=== PATIENT | female | born 1935 | race Caucasian/White ===

== ENCOUNTER 2025-08-08 15:47 | Outpatient (REF) | payer MEDICARE, OTHER, SELFPAY ==
--- OUTSIDE RECORDS SUMMARY | 2025-04-03 08:30 | XMS_ITS ---
Author Organization [facility] Address [address] [place] [address] Care Team Providers Care Shoe Sticks Repairer Name Role Phone Shi King Primary Care Provider Unavailab Filomena Thomas [phone] REASON FOR VISIT seen sooner Encounters Encounter Location Date Provider Diagnosis [address] [address] 04/03/2025 Filomena Jj Plan Of Treatment Next Appt Details Provider Name:Filomena Jj , 08/30/2025 01:00:00 PM, [address] [facility], [place], [address], Progress Notes * Sarah QUEZADA ADOB:[birth year] (89 yo F)Acc No.[id number]:04/03/2025 Progress Note Patient: Sarah TROTTER Provider: Allison Jj DPM :1935 A ge:89 Y S ex:Female Date:04/03/2025 Address:[address], [address], [place], [place] Pcp:Shi King Subjective: * Chief Complaints: * [...] 04/03/2025 Generated for Meenakshi chakraborty/Warren/Razia on: 1 10/09/2024 08:41 PM EST
[2025-08-08 16:02] LABS: Appearance Urine Clear; Glucose Urine UA Negative (Negative); PH 7.0 (5.0-9.0); Specific Gravity - Urine 1.010 (1.005-1.025)
--- OUTSIDE RECORDS SUMMARY | 2025-08-08 20:41 | XMS_ITS | Patient Health Record ---
[facility] Address [address] [place] [address] Care Team Providers Care Fabrication Operator Name Role Phone Shi King Primary Care Provider Unavailab Filomena Thomas Unavailable [phone] Allergies Allergen (clinical drug ingredient) Drug/Non Drug Allergy documented on EMR Reaction Allergy Type Onset Date Status Percodan tachycardia Drug Allergy Activ e Reason For Referral No Information Medications Medication SIG (Take, Route, Frequency, Duration) Notes Start Date End Date Status Calcium 600 MG 1 tablet with meals Orally Twice a day 05/29/2014 Not-Taking Crotan 10 % APPLY 2-4 GRAMS TO BOTH FEET TWICE DAILY; Duration: 30 Active Amoxicillin 500 MG Oral; Duration: 3 Not-Taking zzzCompression Stockings 20-30mm Hg . . .; Duration: . Not-Takin g Gemtesa 75 MG 1 tablet Orally Once a day Not-Taking prednisoLONE Acetate 1 % Ophthalmic; Duration: 25 Not-Taking oxyBUTYnin Chloride ER 10 MG Oral; Duration: 90 Not-Taking Trospium Chloride Ac tive HYDROcodone-Acetaminophen 5-325 MG Oral; Duration: 3 Not-Taking amLODIPine Besylate 10 MG 1 tablet Orall y Once a day Active Ampicillin 500 MG Oral; Duration: 4 Not-Taking hydroCHLOROthiazide 25 MG 1 tablet in morning Orally Once a day Active Lisinopril-hydroCHLOROthiazi d e 10-12.5 MG Oral; Duration: 90 Not-Takin g Multivital [place] Orally 05/29/2014 Active Neurontin 100 MG Orally BID, And 600mg at bedtime Not-Taking Metoprolol Succinate ER 100 MG Oral; Duration: 90 Active Restasis 0.05 % Ophthalmic; Duration: 90 Not-Taking Immunizations Vaccine Route Administration Date Status Comme nts COVID-19 Pfizer BioNTech Vaccine Unknown 08/23/2020 Administered Second Dose: Social History Tobacco Use: Social History Observation Description Date Details (start date - stop date) Never Smoker NA - NA Tobacco use other than smoking: Question Answer Notes Are you an other tobacco user? No Tobacco Control (Standard) Question Answer Notes Tobacco use: Nonsmoker Additional Findings: Tobacco non-user Current no nsmoker AUDIT-C (Standard) Question Answer Notes Did you have a drink containing alcohol in the p ast year? No Points 0 Interpretation Negative Problems Problem Type SNOMED Code ICD Code Onset Dates Problem Status W/U Status Risk Notes Problem Plantar wart (68577379) Plantar wart (B07.0) Active confirmed Vital Signs Blood pressure diastolic 60 mm Hg 02/27/2025 Height 5 ft 4 in in 02/27/2025 Blood pressure systolic 110 mm Hg 02/27/2025 Weight 142 lbs 02/27/2025 BMI 24.37 kg/m2 02/27/2025 Procedures Procedure Date Ordered Date Performed Result Body Sit e 63201-OHAREAW NAIL, 1-5 10/03/2024 N/A 30251-Zcdc Destruction, 1-14 10/03/2024 N/A 81116-Gjmv Destruction, -14 02/27/2025 N/A 25681-Jnjvcixj Plate 02/27/2025 N/A Encounters Encounter Location Date Provider Diagnosis [address] [address] 10/03/2024 Filomena Black Plantar wart B07.0 ; Onychomycosis B35.1 ; Right foot pain M79.671 and Pain in right toe(s) M79.[address] [facility] [address] 02/27/2025 Filomena Black Ingrown nail L60.0 ; Right foot pain M79.671 and Plantar wart B07.0 [facility] [place] [address] [place] [address] 10/03/2024 Filomena Black [facility] [address] 01/04/2025 [facility] [place] [address] [facility] [address] [place] [address] 02/20/2025 [facility] Encounter Date Diagnosis (ICD Code) Assessment Notes Treatment Notes Treatment Clinical Notes Section Notes 10/03/2024 Plantar wart (ICD-10 - B07.0) 10/03/2024 Onychomycosis (ICD-10 - B35.1) 02/27/2025 Ingrown nail (ICD-10 - L60.0) 02/27/2025 Right foot pain (ICD-10 - M79.671) 10/03/2024 Right foot pain (ICD-10 - M79.671) 10/03/2024 Pain in right toe(s) (ICD-10 - M79.674) 02/27/2025 Plantar wart (ICD-10 - B07.0) Plan Of Treatment Pending Test Test Name Order Date X ray : Foot, right 3V 01/11/2020 73530-GEYETQW NAIL, 6 OR MORE 12/26/2015 75424-ZWZZQRX NAIL, 6 OR MORE 04/17/2016 11110-APKVIFZ NAIL, 1-5 09/26/2015 23670-DNWWBEO NAIL, 1-5 10/03/2024 47539-Ajip Destruction, -14 10/03/2024 56517-Oqhh Destruction, -14 04/04/2024 20273-Zmck Destruction, -14 02/27/2025 71004-Jbou Destruction, -14 07/28/2023 66362-Sllz Destruction, -14 09/26/2015 32501-Gebm Destruction, -14 12/26/2015 14837-Anzg Destruction, -14 04/17/2016 55779-Fyta Destruction, -14 05/01/2016 28516-Hiwr Destruction, -14 12/30/2020 93966-Wzkx Destruction, -14 12/16/2022 37603-Qxvu Destruction, -14 12/01/2016 48783-Kbew Destruction, 1-14 02/14/2018 06425-Pnxi Destruction, -14 10/12/2019 54995-Bmrh Destruction, -14 01/11/2020 40401-Nerl Destruction, 15 OR MORE 08/24 75666-Wkjbkoim Plate 02/27/2025 07433-Utojvlis Plate 07/28/2023 05318-Ufyalczy Plate 04/17/2016 44847- Debride <25 sq cm 05/01/2016 38107- Debride <25 sq cm 12/15/2016 97655- Debride <25 sq cm 08/04/2023 78858- Debride <25 sq cm 08/24/2023 98787-UYGCWYY SKIN/TISSUE 12/08/2016 Next Appt Details Provider Name:Filomena Jj , 08/30/2025 01:00:00 PM, [address] [facility], [place], [address], Insurance Providers Payer Name Payer Address Payer Phone Subscriber Number Group Number Insured Name Patient Relationship to Insured Coverage Start Date Coverage End Date Medicare National Govt [facility] [address] [place] [address] [id number] Sarah Collier Self - patient is the insured [employer] ([employer]) [address] [place] [address] [id number] Sarah Collier Self - patient is the insured Medical (General) History Medical History History ICD Code Cancer High blood pressure Neuropathy Measles Chicken pox Joint implants/screws Transfusions Arthritis M19.90 Neuropathy G62.9 Other hammer toe(s) (acquired), left prasad t M20.42 Other hammer toe(s) (acquired), right fo ot M20.41 Venous insufficiency I87.2 Surgical History Surgery Date(Month/Year) right hip replacement 2007 left hip replacement 2006 left knee replacement 2004 left shoulder replacement 2017 right knee replacement 2021 right shoulder replaced 03/2024
== END 2025-08-08 15:48 | disposition home or self-care (01) ==
LOC: HO.HSH2N 15:47
PROVIDERS: Visit Provider Internal Medicine
DX: N39.0 Urinary tract infection, site not specified (principal)
CPT/HCPCS: 81003; 87086

== ENCOUNTER 2025-08-09 06:21 | Outpatient (REF) | payer SELFPAY ==
[2025-08-09 06:33] LABS: MANUAL DIFF FLAG NO
[2025-08-09 07:12] LABS: Hematocrit 37.2 % (37.0-47.0); Hemoglobin 12.3 g/dl (12.0-16.0); Imm Gran Abs Auto 0.03 X10*3/uL (0.00-0.03); Imm Gran Pct Auto 0.6 % (0.0-0.4); Lymphocytes Absolute Auto 1.4 X10*3/uL (1.2-4.9); Mean Corpuscular HGB Conc 33.1 g/dl (31.0-35.0); Mean Corpuscular Hemoglobin 30.9 pg (27.0-33.0); Mean Corpuscular Volume 93.5 fL (80.0-98.0); NRBC Abs Auto 0.000 X10*3/uL (0.0-0.012); NRBC Pct Auto 0.0 /100WBC (0.0-0.2); Platelet Count 178 X10*3/uL (160-400); Red Blood Count 3.98 X10*6/uL (4.20-5.50); White Blood Count 5.3 X10*3/uL (4.8-10.8)
[2025-08-09 07:17] LABS: Alanine Aminotransferase 16 U/L (0-31); Albumin Level 4.0 g/dL (3.5-5.0); Alkaline Phosphatase 105 U/L (39-117); Anion Gap 11 (12-20); Aspartate Amino Transferase 26 U/L (5-31); Blood Urea Nitrogen 24 mg/dL (9-16); Calcium 8.7 mg/dL (8.4-10.2); Carbon Dioxide 30 mmol/L (22-29); Chloride 92 mmol/L (96-108); Estimated Glomerular Filt Rate 58; Potassium 3.2 mmol/L (3.3-5.1); Sodium 130 mmol/L (135-145); Total Protein 6.3 g/dL (6.5-8.0)
[2025-08-09 07:32] LABS: Free T4 (Free Thyroxine) 0.88 ng/dL (0.71-1.85); Thyroid Stimulating Hormone 1.38 uIU/mL (0.32-4.0)
== END 2025-08-09 06:22 ==
LOC: HO.HSH2S 06:21
PROVIDERS: Visit Provider Nurse Practitioner
DX: E05.90 Thyrotoxicosis, unspecified without thyrotoxic crisis or storm (principal); E11.9 Type 2 diabetes mellitus without complications; I10 Essential (primary) hypertension
CPT/HCPCS: 36415; 80053; 83036; 84439; 84443; 85025; 86481

== ENCOUNTER 2025-08-17 05:51 | Outpatient (REF) | payer SELFPAY ==
--- OUTSIDE RECORDS SUMMARY | 2025-04-03 08:30 | XMS_ITS ---
Author Organization [facility] Address [address] [place] [address] Care Team Providers Care Halfway House Counselor Name Role Phone Shi King Primary Care Provider Unavailab Filomena Thomas [phone] REASON FOR VISIT seen sooner Encounters Encounter Location Date Provider Diagnosis [address] [address] 04/03/2025 Filomena Jj Plan Of Treatment Next Appt Details Provider Name:Filomena Jj , 08/30/2025 01:00:00 PM, [address] [facility], [place], [address], Progress Notes * Sarah QUEZADA ADOB:[birth year] (89 yo F)Acc No.[id number]:04/03/2025 Progress Note Patient: Sarah TROTTER Provider: Allison Jj DPM :1935 A ge:89 Y S ex:Female Date:04/03/2025 Address:[address], [address], [place], [place] Pcp:Shi King Subjective: * Chief Complaints: * 1 . Seen sooner. * Medical History: Objective: * Vitals: Assessment: Plan: * Treatment: * Images: * The named appointment provid er may or may not be the originator of this progress note, and it is not deemed complete until electronically signed by the appointment provider. Sign off status: Pending * Provider: Allison Jj DPM Date: 0 04/03/2025 Generated for Meenakshi chakraborty/Warren/Razia on: 1 10/18/2024 05:54 AM EST
--- OUTSIDE RECORDS SUMMARY | 2025-08-17 05:55 | XMS_ITS | Patient Health Record ---
Author Organization [facility] Address [address] [place] [address] Care Team Providers Care Tank Storage Supervisor Name Role Phone Shi King Primary Care Provider Unavailab Filomena Thomas Unavailable [phone] Allergies Allergen (clinical drug ingredient) Drug/Non Drug [...] MG Oral; Duration: 90 Not-Takin g Multivital [place] Orally 05/29/2014 Active Neurontin 100 MG Orally [...] W/U Status Risk Notes Problem Plantar wart (28468567) Plantar wart (B07.0) Active confirmed Vital Signs Blood pressure diastolic 60 mm Hg 02/27/2025 Height 5 ft 4 in in 02/27/2025 Blood pressure systolic 110 mm Hg 02/27/2025 Weight 142 lbs 02/27/2025 BMI 24.37 kg/m2 02/27/2025 Procedures Procedure Date Ordered Date Performed Result Body Sit e 66809-VOMTDBV NAIL, 1-5 10/03/2024 N/A 45756-Bbbe Destruction, 1-14 10/03/2024 N/A 13124-Nhyy Destruction, -14 02/27/2025 N/A 81161-Wbnbmlkh Plate 02/27/2025 N/A Encounters Encounter Location Date Provider Diagnosis [address] [address] 10/03/2024 Filomena Black Plantar wart B07.0 ; Onychomycosis B35.1 ; Right foot pain M79.671 and Pain in right toe(s) M79.[address] [facility] [address] 02/27/2025 Filomena Black Ingrown nail L60.0 ; Right foot pain M79.671 and Plantar wart B07.0 [facility] [place] [address] [place] [address] 10/03/2024 Filomena Black [facility] [address] 01/04/2025 [facility] [place] [address] [facility] [address] [place] [address] 02/20/2025 [facility] Encounter Date Diagnosis (ICD Code) Assessment Notes [...] X ray : Foot, right 3V 01/11/2020 18392-AUTYHDD NAIL, 6 OR MORE 12/26/2015 17702-YEEDQSF NAIL, 6 OR MORE 04/17/2016 18043-FRUJFHG NAIL, 1-5 09/26/2015 74855-KURTSRC NAIL, 1-5 10/03/2024 03099-Snxm Destruction, -14 10/03/2024 09583-Crlh Destruction, -14 04/04/2024 37423-Ozdt Destruction, -14 02/27/2025 13401-Wehq Destruction, -14 07/28/2023 98202-Khcx Destruction, -14 09/26/2015 11861-Etqv Destruction, -14 12/26/2015 74380-Zhza Destruction, -14 04/17/2016 02123-Mowl Destruction, -14 05/01/2016 03559-Zijm Destruction, -14 12/30/2020 94515-Jpby Destruction, -14 12/16/2022 31683-Uwcz Destruction, -14 12/01/2016 11504-Elti Destruction, 1-14 02/14/2018 02415-Wpek Destruction, -14 10/12/2019 18814-Fnqj Destruction, -14 01/11/2020 94265-Sfij Destruction, 15 OR MORE 08/24 92010-Uvukgkpf Plate 02/27/2025 62002-Lfwovdpw Plate 07/28/2023 98575-Wffruwvt Plate 04/17/2016 28378- Debride <25 sq cm 05/01/2016 89144- Debride <25 sq cm 12/15/2016 71591- Debride <25 sq cm 08/04/2023 34941- Debride <25 sq cm 08/24/2023 96940-UHGHHEO SKIN/TISSUE 12/08/2016 Next Appt Details Provider Name:Filomena Jj , 08/30/2025 01:00:00 PM, [address] [facility], [place], [address], Insurance Providers Payer Name Payer Address Payer Phone Subscriber Number Group Number Insured Name Patient Relationship to Insured Coverage Start Date Coverage End Date Medicare National Govt [facility] [address] [place] [address] [id number] Sarah Collier Self - patient is the insured [employer] [address] [place] [address] [phone] [id number] Sarah Collier Self - patient is [...]
[2025-08-17 06:41] LABS: Cholesterol 174 mg/dL (<200); HDL Cholesterol 43 mg/dL (>40); Triglycerides 155 mg/dL (<150)
[2025-08-17 06:47] LABS: Anion Gap 12 (12-20); Blood Urea Nitrogen 23 mg/dL (9-16); Calcium 8.7 mg/dL (8.4-10.2); Carbon Dioxide 30 mmol/L (22-29); Chloride 87 mmol/L (96-108); Estimated Glomerular Filt Rate > 60; Iron 46 mcg/dL (30-160); Percent Iron Saturation 18 % (15-50); Potassium 4.2 mmol/L (3.3-5.1); Sodium 125 mmol/L (135-145); Total Iron Binding Capacity 252 mcg/dL (228-428); Unsaturated Iron Binding 206 ug/dL
[2025-08-17 07:02] LABS: Ferritin 357 ng/mL (10-250)
[2025-08-17 07:04] LABS: Vitamin B12 394 pg/mL (200-900)
[2025-08-17 15:18] LABS: Appearance Urine Cloudy; Glucose Urine UA Negative (Negative); PH 7.0 (5.0-9.0); Specific Gravity - Urine 1.010 (1.005-1.025); UMIC TRIGGER UA YES
== END 2025-08-17 05:52 | disposition home or self-care (01) ==
LOC: HO.HSH2S 05:51
PROVIDERS: Internal Medicine; Visit Provider Nurse Practitioner
DX: D64.9 Anemia, unspecified (principal); E78.5 Hyperlipidemia, unspecified
CPT/HCPCS: 36415; 80048; 80061; 81001; 81003; 82607; 82728; 83540; 87086; 87088